=== PATIENT | male | born 1990 | race Caucasian/White ===

== ENCOUNTER 2020-03-13 19:02 | Emergency (ER) | payer OTHER ==
[2020-03-13] MEDS ORDERED: AMOX/CLAV 875 MG/125 MG TABLET PO STA (20:01)
--- NOTE | 2020-03-13 20:02 | ED Physician Documentation ---
History of Present Illness - Stated complaint Stated Complaint: DOG BITE - Chief complaint Chief Complaint: Wound - History obtained from History obtained from: Patient - History of Present Illness Timing: Today Pain level max: 0 Pain level now: 0 - Additonal information Additional information: 29-year-old male presents to the emergency department after being bit by a dog today. He states he has lacerations to the face, left hand and left forearm. Nothing makes it better or worse. Tetanus up-to-date. No allergies to medications. Review of Systems Constitutional: denies: Fever, Chills Skin: denies: Rash Musculoskeletal: denies: Neck pain, Back pain PD PAST MEDICAL HISTORY - Past Medical History Past Medical History: No - Past Surgical History Past Surgical History: No - Present Medications Home Medications: Ambulatory Orders Medication Instructions Recorded Confirmed Amox/Clav 875/125 [Augmentin] 1 tab PO Q12H #20 tablet 03/13/20 - Allergies Allergies/Adverse Reactions: Allergies Allergy/AdvReac Type Severity Reaction Status Date / Time No Known Drug Allergies Allergy Verified 03/13/20 20:09 PD ED PE NORMAL - Vitals Vital signs reviewed: Yes - General General: Alert and oriented X 3, No acute distress - HEENT HEENT: Moist mucous membranes, Pharynx benign - Neck Neck: Supple, no meningeal sign - Derm Derm: Warm and dry - Neuro Neuro: Alert and oriented X 3 - Psych Psych: Normal mood, Normal affect - Free text exam Free text exam: Small puncture wound to the palmar aspect of the left hand. Not bleeding. 2 small puncture wounds to the right upper lip. no bleeding. Superficial. Also has abrasions to the left forearm. Results - Vitals Vitals: Vital Signs - 24 hr 03/13/20 03/13/20 19:07 20:10 Temperature 36.9 C 36.8 C Heart Rate 98 88 Respiratory 16 16 Rate Blood Pressure 131/76 H 126/72 O2 Saturation 98 100 Oxygen O2 Source Room air PD MEDICAL DECISION MAKING - ED course Complexity details: considered differential, d/w patient ED course: Patient status post a dog bite tonight. Tetanus up-to-date. No indication for rabies vaccination. Will place on Augmentin. Patient counseled regarding signs and symptoms for which I believe and urgent re-evaluation would be necessary. Patient with good understanding of and agreement to plan and is comfortable going home at this time This document was made in part using voice recognition software. While efforts are made to proofread this document, sound alike and grammatical errors may occur. Departure - Departure Disposition: 01 Home, Self Care Clinical Impression: Animal bite with open wound Condition: Good Instructions: ED Bite Animal General Follow-Up: your,doctor in 1 week for wound check [Other] Prescriptions: Amox/Clav 875/125 [Augmentin] 1 tab PO Q12H #20 tablet Comments: Your prescription was sent electronically to the [facility] today. Pick it up tomorrow. Return if you worsen. Keep the wounds clean. Return for redness, swelling or drainage from the wound. Discharge Date/Time: 03/13/20 20:10
[2020-03-13 20:11] VITALS: BP 126/72
== END 2020-03-13 20:10 | disposition home or self-care (01) ==
LOC: ED 19:02
DX: S01.551A Open bite of lip, initial encounter (principal); S61.452A Open bite of left hand, initial encounter; S50.872A Other superficial bite of left forearm, initial encounter; W54.0XXA Bitten by dog, initial encounter; Y93.K1 Activity, walking an animal
CPT/HCPCS: 99282; 99284; A9270